=== PATIENT | female | born 1990 | race African-American/Black ===

== ENCOUNTER 2016-10-16 07:31 | Emergency (ER) | payer OTHER ==
[~2016-10-16] VITALS: Ht 157.5 cm; Wt 69.0 kg
[~2016-10-16 07:31] MED LIST: VICODIN 5-3001 EACH PO
[2016-10-16] MEDS ORDERED: NAPROXEN500 MG PO (09:10)
[2016-10-16 09:20] VITALS: BP 108/62
== END 2016-10-16 09:22 | disposition home or self-care (01) ==
LOC: EME 07:31
DX: S90.01XA Contusion of right ankle, initial encounter (principal); W22.8XXA Striking against or struck by other objects, initial encounter; Y92.239 Unspecified place in hospital as the place of occurrence of the external cause; Y99.0 Civilian activity done for income or pay
CPT/HCPCS: 73610; 73630; 99281; 99283